=== PATIENT | female | born 1960 | race Caucasian/White ===

== ENCOUNTER 2022-02-06 21:40 | Inpatient (IN) | payer MEDICARE, OTHER ==
[~2022-02-06] VITALS: Ht 154.9 cm; Wt 117.0 kg
[~2022-02-06 21:40] MED LIST: LOPRESSOR 25 MG25 MG PO
[2022-02-06 23:02] LABS: HEMOGLOBIN 13.8 gm/dl (12.3-15.3); RED BLOOD COUNT 4.78 M/UL (4.00-5.10); WHITE BLOOD COUNT 20.6 K/UL (4.5-11.0)
[2022-02-06 23:30] LABS: BUN/CREATININE RATIO 15 (0-10)
[2022-02-07] MEDS ORDERED: ASPIRIN EC81 MG PO (10:01)
[2022-02-07] MEDS ORDERED: JANUVIA100 MG PO (10:01)
[2022-02-07] MEDS ORDERED: LATANOPROST2.5 ML OU (10:01)
[2022-02-07] MEDS ORDERED: CYMBALTA30 MG PO (10:02)
[2022-02-07] MEDS ORDERED: HYDRALAZINE HC100 MG PO (10:02)
[2022-02-07] MEDS ORDERED: CARVEDILOL3.125 MG PO (10:02)
[2022-02-07] MEDS ORDERED: CATAPRES 0.1MG0.1 MG PO (10:02)
[2022-02-07] MEDS ORDERED: ISOSORBIDE MONO60 MG PO (10:03)
[2022-02-07] MEDS ORDERED: ATORVASTATIN CA40 MG PO (10:03)
[2022-02-07] MEDS ORDERED: HYDROCODON-ACE1 EAC6 PO (10:03)
[2022-02-07] MEDS ORDERED: OMEPRAZOLE40 MG PO (10:03)
[2022-02-07] MEDS ORDERED: CARDIZEM CD120 MG PO (10:04)
[2022-02-07] MEDS ORDERED: MIRAPEX1 MG PO (10:04)
[2022-02-07] MEDS ORDERED: FEBUXOSTAT80 MG PO (10:04)
[2022-02-07] MEDS ORDERED: K-TAB ER10 MEQ PO (10:05)
[2022-02-07] MEDS ORDERED: MONTELUKAST SOD10 MG PO (10:06)
[2022-02-07] MEDS ORDERED: BYDUREON BCISE INJ (10:06)
[2022-02-07] MEDS ORDERED: FUROSEMIDE40 MG PO (10:06)
[2022-02-07] MEDS ORDERED: CYCLOBENZAPRINE10 MG PO (10:07)
[2022-02-08 07:37] LABS: HEMOGLOBIN 12.4 gm/dl (12.3-15.3); RED BLOOD COUNT 4.35 M/UL (4.00-5.10)
[2022-02-08 07:47] LABS: WHITE BLOOD COUNT 11.9 K/UL (4.5-11.0)
[2022-02-08 08:12] LABS: BUN/CREATININE RATIO 12 (0-10)
--- NOTE | 2022-02-08 16:00 | NUR ---
REPORT GIVEN TO VITALIY. PT RESTING IN BED. NAD. MONITORING.
--- NOTE | 2022-02-10 16:44 | NUR ---
PATIENT'S IV IS LEAKING. CALLED RESOURCE TO PLACE IV. FOUR ATTEMPTS WERE MADE, ALL FOUR BLEW. HOUSE WAS CALLED, SHE RECOMMENDED CALLING ICU. ICU CALLED AND THEY SAID THEY WOULD TRY TO DO AN ULTRASOUND GUIDED IV. OF THIS TIME NOONE HAS COME FROM ICU TO ATTEMPT US GUIDED IV. PROVIDER HAS BEEN NOTIFIED OF THE SITUATION. PATIENT IS DIABETIC, IS ON D5 1/2 NORMAL SALINE SHE IS NPO DUE TO A SMALL BOWEL OBSTRUCTION. PATIENTS CURRENT BLOOD GLUCOSE IS 84. PROVIDER IS ALSO AWARE OF THIS. WILL CONTINUE TO MONITOR.
[2022-02-12 06:12] LABS: HEMOGLOBIN 12.2 gm/dl (12.3-15.3); RED BLOOD COUNT 4.3 M/UL (4.00-5.10); WHITE BLOOD COUNT 11.3 K/UL (4.5-11.0)
[2022-02-12 06:37] LABS: BUN/CREATININE RATIO 5 (0-10)
[2022-02-13 06:40] LABS: RED BLOOD COUNT 3.93 M/UL (4.00-5.10); WHITE BLOOD COUNT 10.3 K/UL (4.5-11.0)
[2022-02-13 06:59] LABS: BUN/CREATININE RATIO 4 (0-10)
[2022-02-13] MEDS ORDERED: AMOX TR-K CLV1 EAC4 PO (14:17)
== END 2022-02-13 19:05 | disposition home or self-care (01) | DRG 389 ==
LOC: ER1 21:40 → MED SURG 4 02-07 01:33 → CDU 02-07 01:33 → MED SURG 4 02-07 15:19
PROVIDERS: Internal Medicine; Physician Assistant; ADMIT Internal Medicine
DX: K56.609 Unspecified intestinal obstruction, unspecified as to partial versus complete obstruction (principal); F11.20 Opioid dependence, uncomplicated; Z68.42 Body mass index [BMI] 45.0-49.9, adult; Z20.822 Contact with and (suspected) exposure to COVID-19; I10 Essential (primary) hypertension; E66.01 Morbid (severe) obesity due to excess calories; E11.9 Type 2 diabetes mellitus without complications; E87.6 Hypokalemia; G89.4 Chronic pain syndrome; E78.5 Hyperlipidemia, unspecified; M54.9 Dorsalgia, unspecified; G47.33 Obstructive sleep apnea (adult) (pediatric); Z86.73 Personal history of transient ischemic attack (TIA), and cerebral infarction without residual deficits; Z90.49 Acquired absence of other specified parts of digestive tract; Z90.710 Acquired absence of both cervix and uterus
CPT/HCPCS: 36415; 51702; 71045; 74019; 80053; 81001; 82550; 82553; 82962; 83605; 83690; 83735; 84484; 85025; 96361; 96374; 96375; 96376; 99285; C9113; G0378; J1335; J1650; J1885; J2270; J2405; J3480; Q9967